=== PATIENT | male | born 1985 | race Caucasian/White ===

== ENCOUNTER 2016-12-01 11:44 | Emergency (ER) | payer BC ==
[2016-12-01 11:55] VITALS: BP 146/92
[2016-12-01] MEDS ORDERED: Sodium Chloride 0.9% 10 ML Syringe FLUSH PRN (12:31)
[2016-12-01] MEDS ORDERED: HYDROmorphone 1 MG/ML Syringe IVPUSH ONE ×2 (12:31→13:37)
--- NOTE | 2016-12-01 13:00 | EDM.PDOC ---
ED HPI GENERAL MEDICAL PROBLEM - General Chief Complaint: Back Pain or Injury Stated Complaint: BACK PAIN Time Seen by Provider: 12/01/16 12:00 Source of Information: Reports: Patient History Limitations: Reports: No Limitations - History of Present Illness INITIAL COMMENTS - FREE TEXT/NARRATIVE: The patient presents with low back pain. He has a history of 2 bulging disks on the right. He has been on steroids for it and on light duty. He is back at work and active and for the past 3 days he has gotten worse pain. He has tingling down his right leg. He has no numbness or weakness. He has no bowel or bladder problems. He went to the walk in clinic and they gave him a shot of toradol and solumedrol. That did not help so they sent him over here. Onset: Gradual Duration: Day(s): (3) Location: Reports: Back Quality: Reports: Sharp Severity: Severe Improves with: Reports: None Worsens with: Reports: Movement Context: Reports: Activity Associated Symptoms: Reports: No Other Symptoms Right Lower Back Pain Score (Numeric/FACES): 10 - Related Data Allergies Allergy/AdvReac Type Severity Reaction Status Date / Time No Known Allergies Allergy Verified 12/01/16 11:55 Home Meds: Home Meds Cyclobenzaprine [Flexeril] 10 mg PO TID PRN #20 tablet 12/01/16 [Rx] oxyCODONE HCl/Acetaminophen [Percocet 5-325 mg Tablet] 1 - 2 each PO Q6HR PRN # 20 tablet 12/01/16 [Rx] Past Medical History Musculoskeletal History: Reports: Back Pain, Chronic - Past Surgical History Musculoskeletal Surgical History: Reports: None Social & Family History - Tobacco Use Smoking Status *Q: Current Every Day Smoker Years of Tobacco use: 3 Packs/Tins Daily: 1 Used Tobacco, but Quit: No Second Hand Smoke Exposure: No - Caffeine Use Caffeine Use: Reports: Coffee, Soda - Recreational Drug Use Drug Use in Last 12 Months: Yes Recreational Drug Type: Reports: Marijuana/Hashish Other Recreational Drug Type: one week ago last use ED ROS GENERAL - Review of Systems Review Of Systems: See Below Constitutional: Reports: No Symptoms HEENT: Reports: No Symptoms Respiratory: Reports: No Symptoms Cardiovascular: Reports: No Symptoms Endocrine: Reports: No Symptoms GI/Abdominal: Reports: No Symptoms : Reports: No Symptoms Musculoskeletal: Reports: Back Pain ED EXAM,LOWER BACK PAIN/INJURY - Physical Exam Exam: See Below Exam Limited By: No Limitations General Appearance: Alert, No Apparent Distress Ears: Normal External Exam Nose: Normal Inspection Head: Atraumatic, Normocephalic Neck: Normal Inspection Respiratory/Chest: No Respiratory Distress, Lungs Clear, Normal Breath Sounds Cardiovascular: Regular Rate, Rhythm, No Edema, No Murmur GI/Abdominal: Soft, Non-Tender, No Organomegaly, No Mass Back Exam: Other (Mild pain upon palpation to the right lower back. Mild weakness to the right leg. Good sensation. Pain to his leg and low back when moving his leg.) Neurological: Alert, Oriented x 3 Course - Vital Signs Last Recorded V/S: Last Vital Signs Temp 98 F 12/01/16 11:52 Pulse 64 12/01/16 11:52 Resp 22 H 12/01/16 11:52 BP 146/92 H 12/01/16 11:52 Pulse Ox 96 12/01/16 11:52 - Orders/Labs/Meds Orders: Active Orders 24 hr Category Date Time Status Peripheral IV Care [RC] . DIRECTED Care 12/01/16 12:31 Active Sodium Chloride 0.9% [Saline Flush] Med 12/01/16 12:31 Active 10 ml FLUSH ASDIRECTED PRN Peripheral IV Insertion Adult [OM.PC] Routine Oth 12/01/16 12:31 Ordered Medication Orders Sodium Chloride (Saline Flush) 10 ml FLUSH ASDIRECTED PRN PRN Reason: Keep Vein Open Last Admin: 12/01/16 12:44 Dose: 10 ml Meds: Medications Generic Name Dose Route Start Last Admin Trade Name Freq PRN Reason Stop Dose Admin Sodium Chloride 10 ml 12/01/16 12:31 12/01/16 12:44 Saline Flush FLUSH 10 ml ASDIRECTED PRN Administration Keep Vein Open Discontinued Medications Generic Name Dose Route Start Last Admin Trade Name Freq PRN Reason Stop Dose Admin Diazepam 5 mg 12/01/16 12:31 12/01/16 12:44 Valium IVPUSH 12/01/16 12:32 5 mg ONETIME ONE Administration Hydromorphone HCl 1 mg 12/01/16 12:31 12/01/16 12:44 Dilaudid IVPUSH 12/01/16 12:32 1 mg ONETIME ONE Administration Hydromorphone HCl 1 mg 12/01/16 13:37 12/01/16 13:42 Dilaudid IVPUSH 12/01/16 13:38 1 mg ONETIME ONE Administration - Re-Assessments/Exams Free Text/Narrative Re-Assessment/Exam: 12/01/16 13:03 I ordered an IV saline lock, valium 5mg IV, and dilaudid 1mg. 12/01/16 14:10 He still had pain so I ordered dilaudid. He feels better now. I will give him a prescription for percocet and flexeril. Departure - Departure Time of Disposition: 14:10 Disposition: Home, Self-Care 01 Condition: Good Clinical Impression: Bulging lumbar disc Low back pain Qualifiers: Chronicity: acute Back pain laterality: right Sciatica presence: with sciatica Sciatica laterality: sciatica of right side Qualified Code(s): M54.41 - Lumbago with sciatica, right side - Discharge Information Prescriptions: oxyCODONE HCl/Acetaminophen [Percocet 5-325 mg Tablet] 1 - 2 each PO Q6HR PRN # 20 tablet PRN Reason: Pain Cyclobenzaprine [Flexeril] 10 mg PO TID PRN #20 tablet PRN Reason: Pain Referrals: Fidencio Moran MD [Primary Care Provider] - Forms: ED Department Discharge Additional Instructions: Take the flexeril and percocet for pain. Try ice or heat which ever one feels better. Follow up with your doctor. Please return if you are worse such as more pain, numbness in your groin or leg, weakness to your leg, if you are unable to urinate or incontinent of stool. - My Orders Last 24 Hours: My Active Orders 12/01/16 12:31 Peripheral IV Care [RC] . DIRECTED Sodium Chloride 0.9% [Saline Flush] 10 ml FLUSH ASDIRECTED PRN Peripheral IV Insertion Adult [OM.PC] Routine - Assessment/Plan Last 24 Hours: My Active Orders 12/01/16 12:31 Peripheral IV Care [RC] . DIRECTED Sodium Chloride 0.9% [Saline Flush] 10 ml FLUSH ASDIRECTED PRN Peripheral IV Insertion Adult [OM.PC] Routine
== END 2016-12-01 14:38 | disposition home or self-care (01) ==
LOC: JD.ED 11:44
DX: M51.26 Other intervertebral disc displacement, lumbar region (principal); F17.210 Nicotine dependence, cigarettes, uncomplicated
CPT/HCPCS: 96374; 96375; 96376; 99283; J1170; J3360; J7050; 99284

== ENCOUNTER 2020-09-20 18:52 | Emergency (ER) | payer BC ==
[2020-09-20 18:58] VITALS: BP 158/103; PULSE 112
[2020-09-20] MEDS ORDERED: Sodium Chloride 0.9% 10 ML Syringe FLUSH PRN (19:37)
--- NOTE | 2020-09-20 19:42 | EDM.PDOC ---
ED HPI GENERAL MEDICAL PROBLEM - General Chief Complaint: General Stated Complaint: [facility] Time Seen by Provider: 09/20/20 19:16 Source of Information: Reports: Patient, Family (Parents) History Limitations: Reports: No Limitations - History of Present Illness INITIAL COMMENTS - FREE TEXT/NARRATIVE: Mr. Salmeron is a very pleasant 35-year-old gentleman who is now brought to the ED by EMS after suffering a syncopal episode shortly after getting out of a hot shower around 17:30 this evening. He was found by his parents, with whom he lives and who are present in the ED, who denies that they saw any seizure-like activity. The patient reports that he initially did not recall that he had just had a shower, but that he recalled that once he was in the ambulance. He states that he initially had a bad headache when he woke up from the event, but that now the headache is minimal. He believes that he struck his upper right shoulder/trapezius area when he fell, as he has some discomfort in that area. He denies having pain elsewhere. The patient reports that he is overly tired, having slept only 2 hours last night prior to working a 10-hour shift today. The patient denies experiencing any recent chest pain or palpitations. No prior syncopal episodes. No medications were given to the patient prior to EMS arrival, and EMS did not give any medications. Here in the ED, the patient's initial BP is found to be mildly elevated at 158/103, with tachycardia 112 bpm. The patient is afebrile, saturating 98% on room air. He appears to be quite comfortable, in no distress whatsoever. Prior to this evening, the patient denies having a recent fever, chills, sore throat, ear pain, nasal or sinus congestion, cough, dyspnea, chest pain, palpitations, nausea, vomiting, constipation, diarrhea, abdominal pain, urinary symptoms, recent weight gain or weight loss, recent bloody bowel movements or black bowel movements, recent joint aches, headaches, or rashes. The patient's PCP was Dr. Manuel Espino; the patient did not know that Dr. Espino retired. Neck Pain Score (Numeric/FACES): 1 - Related Data Allergies Allergy/AdvReac Type Severity Reaction Status Date / Time No Known Allergies Allergy Verified 09/20/20 18:58 Home Meds: Home Meds . [No Known Home Meds] 09/20/20 [History] Past Medical History Dermatologic History: Reports: Psoriasis (untreated) - Past Surgical History HEENT Surgical History: Reports: Oral Surgery (dental extractions) Social & Family History - Tobacco Use Tobacco Use Within Last Twelve Months: Smokeless Tobacco (chews 3/4 can per day) - Caffeine Use Caffeine Use: Reports: Energy Drinks - Alcohol Use Alcohol Use History: Yes Alcohol Use Frequency: Daily - Recreational Drug Use Recreational Drug Use: Yes Drug Use in Last 12 Months: No Recreational Drug Type: Reports: Marijuana/Hashish (last smoked 2019) - Living Situation & Occupation Living situation: Reports: Single, with Family (Parents) 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 Musculoskeletal: Reports: Back Pain (chronic) ED EXAM, GENERAL - Physical Exam Exam: See Below Exam Limited By: No Limitations General Appearance: Alert, WD/WN, No Apparent Distress Eye Exam: Bilateral Eye: EOMI, Normal Inspection Ears: Normal External Exam, Normal Canal, Hearing Grossly Normal, Normal TMs Nose: Normal Inspection, Normal Mucosa, No Blood Throat/Mouth: Normal Inspection, Normal Lips, Normal Oropharynx, Normal Voice, No Airway Compromise, Other (Poor dentition) Head: Atraumatic, Normocephalic Neck: Normal Inspection, Supple, Full Range of Motion, Tender Lateral (mild, to upper right trapezius). No: Lymphadenopathy (L), Lymphadenopathy (R) Respiratory/Chest: No Respiratory Distress, Lungs Clear, Normal Breath Sounds, No Accessory Muscle Use Cardiovascular: Normal Peripheral Pulses, Regular Rate, Rhythm, No Edema, No Gallop, No JVD, No Murmur, No Rub Peripheral Pulses: 3+: Radial (L), Radial (R) GI/Abdominal: Normal Bowel Sounds, Soft, Non-Tender, No Organomegaly, No Distention, No Abnormal Bruit, No Mass Back Exam: Normal Inspection, Full Range of Motion, NT Extremities: Normal Range of Motion, No Pedal Edema, Normal Capillary Refill Neurological: Alert, Oriented, CN II-XII Intact, Normal Cognition, No Motor/Sensory Deficits Psychiatric: Normal Affect Skin Exam: Warm, Dry, Intact, Normal Color, Rash (Psoriatic plaques to bilateral anterior legs) #1 Interpretation EKG Date: 09/20/20 Time: 19:59 Rhythm: Other (Sinus tachycardia) Rate (Beats/Min): 101 [place]: Normal (Borderline LAD) P-Wave: Present QRS: Normal ST-T: Normal QT: Normal Comparison: NA - No Prior EKG Course - Vital Signs Last Recorded V/S: Last Vital Signs Temp 36.4 C 09/20/20 18:55 Pulse 112 H 09/20/20 18:55 Resp 16 09/20/20 18:55 BP 158/103 H 09/20/20 18:55 Pulse Ox 98 09/20/20 18:55 Orthostatic Blood Pressure [ 133/81 Standing] Orthostatic Blood Pressure [ 138/85 Sitting] Orthostatic Blood Pressure [ 137/82 Supine] - Orders/Labs/Meds Orders: Active Orders 24 hr Category Date Time Status EKG Documentation Completion [RC] STAT Care 09/20/20 19:36 Active Orthostatic Vital Signs [RC] STAT Care 09/20/20 19:24 Active Peripheral IV Care [RC] . DIRECTED Care 09/20/20 19:38 Active Ang Chest [CT] Stat Exams 09/20/20 21:00 Taken Cervical Spine wo Cont [CT] Stat Exams 09/20/20 21:55 Taken Sodium Chloride 0.9% [Normal Saline] 1,000 ml Med 09/20/20 21:00 Active IV ASDIRECTED Sodium Chloride 0.9% [Saline Flush] Med 09/20/20 19:37 Active 10 ml FLUSH ASDIRECTED PRN Peripheral IV Insertion Adult [OM.PC] Routine Oth 09/20/20 19:37 Ordered Medication Orders Sodium Chloride (Normal Saline) 1,000 mls @ 150 mls/hr IV ASDIRECTED GARCIA Last Admin: 09/20/20 21:35 Dose: 150 mls/hr Documented by: MICHAEL Sodium Chloride (Sodium Chloride 0.9% 10 Ml Syringe) 10 ml FLUSH ASDIRECTED PRN PRN Reason: Keep Vein Open Last Admin: 09/20/20 19:48 Dose: 10 ml Documented by: MICHAEL Labs: Laboratory Tests 09/20/20 09/20/20 09/20/20 Range/Units 20:00 20:00 20:00 WBC 9.11 H (4.23-9.07) K/mm3 RBC 4.20 L (4.63-6.08) M/mm3 Hgb 15.1 (13.7-17.5) gm/dl Hct 42.1 (40.1-51.0) % MCV 100.2 H (79.0-92.2) fl MCH 36.0 H (25.7-32.2) pg MCHC 35.9 H (32.2-35.5) g/dl RDW Std Deviation 49.1 H (35.1-43.9) fL Plt Count 192 (163-337) K/mm3 MPV 8.8 L (9.4-12.3) fl Neutrophils % (Manual) 83 H (40-60) % Band Neutrophils % 2 (0-10) % Lymphocytes % (Manual) 13 L (20-40) % Atypical Lymphs % 0 % Monocytes % (Manual) 2 (2-10) % Eosinophils % (Manual) 0 L (0.8-7.0) % Basophils % (Manual) 0 L (0.2-1.2) Platelet Estimate Adequate Anisocytosis 1+ slight Macrocytosis 1+ slight RBC Morph Comment Not Reportable D-Dimer, Quantitative 0.97 H (0.19-0.50) mg/L Sodium 136 (136-145) mEq/L Potassium 3.7 (3.5-5.1) mEq/L Chloride 98 (98-107) mEq/L Carbon Dioxide 23 (21-32) mEq/L Anion Gap 18.7 H (5-15) BUN 15 (7-18) mg/dL Creatinine 1.1 (0.7-1.3) mg/dL Est Cr Clr Drug Dosing 95.86 mL/min Estimated GFR (MDRD) > 60 (>60) mL/min BUN/Creatinine Ratio 13.6 L (14-18) Glucose 117 H (74-106) mg/dL Calcium 8.6 (8.5-10.1) mg/dL Magnesium 2.0 (1.8-2.4) mg/dl Total Bilirubin 1.4 H (0.2-1.0) mg/dL AST 113 H (15-37) U/L ALT 92 H (16-63) U/L Alkaline Phosphatase 62 (46-116) U/L Troponin I < 0.017 (0.00-0.056) ng/mL Total Protein 7.6 (6.4-8.2) g/dl Albumin 4.3 (3.4-5.0) g/dl Globulin 3.3 gm/dL Albumin/Globulin Ratio 1.3 (1-2) Urine Opiates Screen (QUUIPR=183) Ur Buprenorphine Scrn (CUTOFF=10) Ur Oxycodone Screen (CYO5HD=108) Urine Methadone Screen (GZW1RL=946) Ur Propoxyphene Screen (UNLRUH=017) Ur Barbiturates Screen (CGEDRK=571) Ur Tricyclics Screen (YDSMNJ=459) Ur Phencyclidine Scrn (CUTOFF=25) Ur Amphetamine Screen (XCNOHK=963) U Methamphetamines Scrn (NFYYUF=072) U Benzodiazepines Scrn (PMZHJF=192) U Cocaine Metab Screen (XATCBM=998) U Marijuana (THC) Screen (CUTOFF=50) Ethyl Alcohol (0.00) gm% 09/20/20 09/20/20 Range/Units 20:00 20:20 WBC (4.23-9.07) K/mm3 RBC (4.63-6.08) M/mm3 Hgb (13.7-17.5) gm/dl Hct (40.1-51.0) % MCV (79.0-92.2) fl MCH (25.7-32.2) pg MCHC (32.2-35.5) g/dl RDW Std Deviation (35.1-43.9) fL Plt Count (163-337) K/mm3 MPV (9.4-12.3) fl Neutrophils % (Manual) (40-60) % Band Neutrophils % (0-10) % Lymphocytes % (Manual) (20-40) % Atypical Lymphs % % Monocytes % (Manual) (2-10) % Eosinophils % (Manual) (0.8-7.0) % Basophils % (Manual) (0.2-1.2) Platelet Estimate Anisocytosis Macrocytosis RBC Morph Comment D-Dimer, Quantitative (0.19-0.50) mg/L Sodium (136-145) mEq/L Potassium (3.5-5.1) mEq/L Chloride (98-107) mEq/L Carbon Dioxide (21-32) mEq/L Anion Gap (5-15) BUN (7-18) mg/dL Creatinine (0.7-1.3) mg/dL Est Cr Clr Drug Dosing mL/min Estimated GFR (MDRD) (>60) mL/min BUN/Creatinine Ratio (14-18) Glucose (74-106) mg/dL Calcium (8.5-10.1) mg/dL Magnesium (1.8-2.4) mg/dl Total Bilirubin (0.2-1.0) mg/dL AST (15-37) U/L ALT (16-63) U/L Alkaline Phosphatase (46-116) U/L Troponin I (0.00-0.056) ng/mL Total Protein (6.4-8.2) g/dl Albumin (3.4-5.0) g/dl Globulin gm/dL Albumin/Globulin Ratio (1-2) Urine Opiates Screen Negative (UXGCXA=732) Ur Buprenorphine Scrn Negative (CUTOFF=10) Ur Oxycodone Screen Negative (MCP6UM=477) Urine Methadone Screen Negative (FEH4HM=384) Ur Propoxyphene Screen Negative (ABILDO=584) Ur Barbiturates Screen Negative (SDSNAI=290) Ur Tricyclics Screen Negative (NOAHQN=622) Ur Phencyclidine Scrn Negative (CUTOFF=25) Ur Amphetamine Screen Negative (XDJRTZ=452) U Methamphetamines Scrn Presumptive positive H (MIFPIH=703) U Benzodiazepines Scrn Negative (MCCXQQ=853) U Cocaine Metab Screen Negative (AZHXZU=312) U Marijuana (THC) Screen Negative (CUTOFF=50) Ethyl Alcohol 0.00 (0.00) gm% Meds: Medications Generic Name Dose Route Start Last Admin Trade Name Freq PRN Reason Stop Dose Admin Sodium Chloride 1,000 mls @ 150 mls/hr 09/20/20 21:00 09/20/20 21:35 Normal Saline IV 150 mls/hr ASDIRECTED GARCIA Administration Sodium Chloride 10 ml 09/20/20 19:37 09/20/20 19:48 Sodium Chloride 0.9% 10 Ml Syringe FLUSH 10 ml ASDIRECTED PRN Administration Keep Vein Open - Re-Assessments/Exams Free Text/Narrative Re-Assessment/Exam: 09/20/20 19:38 As above, the patient suffered a syncopal episode after he got out of the shower this evening. He likely struck the right side of his neck/upper right trapezius area. He is complaining of a mild headache, although states that it was worse when he originally woke. His neurologic examination is completely normal. Despite this, I ordered a CT of the head without contrast to make sure that there are no abnormalities that could have precipitated his syncopal episode, along with orthostatics, several blood tests, and an ECG. 09/20/20 20:01 The patient's mother pulled me aside and informed me that the patient drinks vodka on a daily or near daily basis. The patient had reported to me that he only drinks on occasion. The patient's mother is unaware of drug use, other than marijuana, although she states that the patient often spends weekends at [employer] houses, and she therefore does not know what he is doing when gone. Based on this information, I have updated the patient's SocHx and added an EtOH level and urine drug screen to the patient's work-up. 09/20/20 20:23 CT of the head without contrast is read by Dr. Bond as: 1. Nothing acute is appreciated on noncontrast head CT exam. 09/20/20 20:34 The patient is not orthostatic. 09/20/20 20:57 The patient's CBC is remarkable for slight leukocytosis of 9.11, but with only 2% bandemia, and the remainder of his CBC being unremarkable. His CMP is remarkable for slight hyperglycemia of 117, a TBil slightly elevated at 1.4, and an AST/ALT slightly elevated at 113/92, respectively, with the remainder of his CMP being unremarkable. His magnesium level is within normal limits at 2.0. His troponin is undetectably low. His D-dimer is mildly elevated at 0.97. His EtOH level is 0.00. His urine drug screen is positive for methamphetamine. Based on the above, I have ordered a CT angiogram of the chest to evaluate for a PE, along with some IV fluid. 09/20/20 21:56 Notified by the mapping technician Artemio that he just finished the CT angiogram of the chest, but that the patient is complaining of neck pain. When I evaluated the patient earlier, he was complaining of right upper trapezius pain, not neck pain, per se, however, if the patient is in fact complaining of neck pain at this time, I requested that a CT of the cervical spine be performed. I have placed the order. 09/20/20 22:45 CT angiogram of the chest is read by [facility] as: 1. No definite central or proximal segmental pulmonary embolus. The distal segmental and subsegmental pulmonary arteries are limited in evaluation due to suboptimal opacification. 2. Hepatic steatosis. The visualized portion of the spleen is enlarged. CT of the cervical spine without contrast is read by [facility] as: 1. No acute fracture cervical spine. 2. Cervical spondylosis as above. 09/20/20 22:52 Test results discussed with the patient. He allowed his parents to be present. As above, today's work-up, demonstrating elevated transaminases in an alcohol pattern, along with hepatic steatosis confirms that the patient drinks excessively. He acknowledges that he does so on occasion. He stated that he does not do methamphetamine himself, but that he has been around people who do. I'm not sure that that is true. I recommended that he follow-up with [facility]. He stated that he is familiar with them, having been there before. Departure - Departure Time of Disposition: 22:54 Disposition: Home, Self-Care 01 Condition: Good Clinical Impression: Syncope, Alcohol consumption binge drinking, Methamphetamine abuse, Hepatic steatosis - Discharge Information *PRESCRIPTION DRUG MONITORING PROGRAM REVIEWED*: Not Applicable *COPY OF PRESCRIPTION DRUG MONITORING REPORT IN PATIENT SHARAD: Not Applicable Referrals: PCP,None [Primary Care Provider] - Forms: ED Department Discharge Additional Instructions: You were seen in the emergency room after passing out after taking a shower tonight. Work-up in the ER included positional blood pressure checks, several blood tests, a urine drug screen, a CT scan of your head, neck, and a CT angiogram of your chest, and an ECG. Your work-up found that you have hepatic steatosis, also known as a fatty liver, that is most likely due to your excessive drinking. Hepatic steatosis was not the cause of your passing out. Your work-up also found methamphetamine in your system. The remainder of your work-up was grossly unremarkable, and does not explain the cause of your passing out. We recommend that you stay adequately hydrated and get plenty of rest tonight. You are to refrain from drinking alcohol. We recommend that you follow-up at [facility]: [address] [place] [phone] If any other problems, please do not hesitate to return to the ER. Sepsis Event Note (ED) - Evaluation Sepsis Screening Result: No Definite Risk - Focused Exam Vital Signs: Vital Signs Temp Pulse Resp BP Pulse Ox 09/20/20 18:55 36.4 C 112 H 16 158/103 H 98 - My Orders Last 24 Hours: My Active Orders 09/20/20 19:24 Orthostatic Vital Signs [RC] STAT 09/20/20 19:36 EKG Documentation Completion [RC] STAT 09/20/20 19:37 Sodium Chloride 0.9% [Saline Flush] 10 ml FLUSH ASDIRECTED PRN Peripheral IV Insertion Adult [OM.PC] Routine 09/20/20 19:38 Peripheral IV Care [RC] . DIRECTED 09/20/20 21:00 Ang Chest [CT] Stat Sodium Chloride 0.9% [Normal Saline] 1,000 ml IV ASDIRECTED 09/20/20 21:55 Cervical Spine wo Cont [CT] Stat - Assessment/Plan Last 24 Hours: My Active Orders 09/20/20 19:24 Orthostatic Vital Signs [RC] STAT 09/20/20 19:36 EKG Documentation Completion [RC] STAT 09/20/20 19:37 Sodium Chloride 0.9% [Saline Flush] 10 ml FLUSH ASDIRECTED PRN Peripheral IV Insertion Adult [OM.PC] Routine 09/20/20 19:38 Peripheral IV Care [RC] . DIRECTED 09/20/20 21:00 Ang Chest [CT] Stat Sodium Chloride 0.9% [Normal Saline] 1,000 ml IV ASDIRECTED 09/20/20 21:55 Cervical Spine wo Cont [CT] Stat
--- NOTE | 2020-09-20 20:14 | CT ---
Head CT Technique: Multiple axial sections through the brain were obtained. Reconstructed coronal and sagittal images were obtained. Comparison: No prior intracranial imaging is available. Findings: Ventricles along with basal cisterns and sulci over the convexities appear within normal limits for the patient's age. No abnormal parenchymal densities are seen. No evidence of intracranial hemorrhage. No midline shift or mass-effect is seen. Small calcification is seen along the cerebellar tentorium on the right side which I believe is incidental. Bone window settings were reviewed which show no acute osseous abnormality. Visualized mastoid sinuses and visualized paranasal sinuses show nothing acute. Impression: 1. Nothing acute is appreciated on noncontrast head CT exam. Diagnostic code #2
[2020-09-20] MEDS ORDERED: Sodium Chloride 0.9% 1,000 ML IV SCH (21:00)
--- NOTE | 2020-09-21 07:53 | CT ---
CT cervical spine Technique: Multiple axial sections were obtained from above C1 inferiorly to the bottom of T2. Reconstructed coronal and sagittal images were obtained. Comparison: No prior cervical spine imaging is available. Findings: Mild mucosal thickening is partially seen within the maxillary sinuses. Mild disc space narrowing is noted at C4-5. Moderate disc space narrowing noted at C5-6. C5-6 level also shows posterior osteophytes and anterior osteophytes. Vertebral body heights are maintained. Old ununited avulsion fracture is noted at the tip of the spinous process of T1. Moderate right-sided neural foraminal stenosis is noted at C5-6. Mild left-sided neural foraminal stenosis is noted at C5-6. Other neural foramina are patent. Visualized lung bases show nothing acute. No acute fracture is appreciated. No abnormal subluxation is appreciated. On the AP view, spurring is noted off the uncovertebral joints at C5-6 which is more prominent on the right side. Impression: 1. Degenerative change most prominent at C5-6 as noted above. Other findings believed to be incidental. 2. Nothing acute is seen on CT study of the cervical spine. Diagnostic code #2 I agree with preliminary report from [facility], finalized on 09/20/20, 11:32 PM CDT, code #1
--- NOTE | 2020-09-21 07:55 | CT ---
CT chest Technique: Multiple axial sections were obtained from above the lung apices inferiorly through the lung bases. Intravenous contrast was utilized. Study has been performed as a pulmonary angiogram protocol. Comparison: No prior chest imaging is available. Findings: Pulmonary arteries are not optimally opacified. No filling defects are seen within the main or proximal segmental branches to indicate larger pulmonary emboli. Smaller pulmonary emboli could be missed more distally. Aorta shows no aneurysm. Mediastinum and hilar regions show no adenopathy. No axillary adenopathy is seen. No pericardial thickening is appreciated. Spleen is not completely seen on this study and appears to be slightly enlarged. Liver shows probable fatty infiltration. Minimal gynecomastia is seen within both breasts. Lung window settings were reviewed. No acute parenchymal change is seen. No pleural effusions or pneumothorax is identified. Bone window settings were reviewed which show no acute osseous abnormality. Impression: 1. Less than optimal opacification of the pulmonary arteries. No findings of larger pulmonary embolism within the main or proximal segmental branches. Smaller more distal pulmonary emboli could be missed. 2. Liver shows mild fatty infiltration. Spleen is not completely seen but appears to be slightly enlarged. 3. Minimal gynecomastia. Diagnostic code #2 I agree with preliminary report from [facility], finalized on 09/19/20, 11:42 PM CDT, code #1
== END 2020-09-20 23:07 | disposition home or self-care (01) ==
LOC: JD.ED 18:52
DX: R55 Syncope and collapse (principal); F15.10 Other stimulant abuse, uncomplicated; K76.0 Fatty (change of) liver, not elsewhere classified; F17.220 Nicotine dependence, chewing tobacco, uncomplicated; Z72.89 Other problems related to lifestyle
CPT/HCPCS: 36415; 70450; 71275; 72125; 80053; 80306; 80307; 83735; 84484; 85007; 85027; 85379; 93005; 99285; J7030; 93010; 99284

== ENCOUNTER 2021-03-31 14:55 | Emergency (ER) | payer BC ==
[2021-03-31 15:21] VITALS: BP 144/107; PULSE 102
[2021-03-31] MEDS ORDERED: Metoclopramide 10 MG/2 ML SDV IVPUSH ONE (16:25)
[2021-03-31] MEDS ORDERED: Sodium Chloride 0.9% 10 ML Syringe FLUSH PRN (16:25)
[2021-03-31] MEDS ORDERED: Ketorolac 30 MG/ML SDV IVPUSH ONE (16:27)
[2021-03-31] MEDS ORDERED: diphenhydrAMINE 50 MG/ML SDV IVPUSH ONE (16:27)
[2021-03-31] MEDS ORDERED: Sodium Chloride 0.9% 1,000 ML IV SCH (16:30)
--- NOTE | 2021-03-31 17:47 | EDM.PDOCBH ---
ED HPI GENERAL MEDICAL PROBLEM - General Chief Complaint: Drug or Alcohol Abuse Stated Complaint: DETOX Time Seen by Provider: 03/31/21 16:06 Source of Information: Reports: Patient, Family History Limitations: Reports: Intoxication - History of Present Illness INITIAL COMMENTS - FREE TEXT/NARRATIVE: The patient presents for a headache and possible detox. He says he has been h aving headaches for months. He is not sure what is causing this. He also is intoxicated. He drinks daily and it is vodka. His mother says he got a couple DUI's in the past and he was wearing an ankle bracelet. [place] and he has been drinking heavily ever since. He has no numbness or weakness. He has no fever, chills, cough, chest pain or shortness of breath. He has no abdominal pain, nausea or vomiting. His mom is here and she says he needs to be committed. She has not done any of the paper work and did not talk to the workers compensation attorney. He does have nausea and vomiting at times. Onset: Gradual Duration: Day(s): Location: Reports: Head Quality: Reports: Sharp Severity: Severe Improves with: Reports: None Worsens with: Reports: None Associated Symptoms: Reports: Headaches, Nausea/Vomiting. Denies: Chest Pain, Cough, Fever/Chills, Shortness of Breath Headache Pain Score (Numeric/FACES): 10 - Related Data Allergies Allergy/AdvReac Type Severity Reaction Status Date / Time No Known Allergies Allergy Verified 09/20/20 18:58 Home Meds: Home Meds . [No Known Home Meds] 09/20/20 [History] Past Medical History Musculoskeletal History: Reports: Back Pain, Chronic Psychiatric History: Reports: Addiction, Anxiety, Depression Dermatologic History: Reports: Psoriasis - Infectious Disease History Infectious Disease History: Reports: None - Past Surgical History HEENT Surgical History: Reports: Oral Surgery Musculoskeletal Surgical History: Reports: None Social & Family History - Tobacco Use Tobacco Use Status *Q: Current Every Day Tobacco User Years of Tobacco use: 20 Packs/Tins Daily: 1 - Caffeine Use Caffeine Use: Reports: None - Alcohol Use Number of Drinks Per Day: 3 - Living Situation & Occupation Living situation: Reports: Single, with Family (Parents) 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[employer]) ED ROS GENERAL - Review of Systems Review Of Systems: See Below Constitutional: Reports: No Symptoms HEENT: Reports: No Symptoms Respiratory: Reports: No Symptoms Cardiovascular: Reports: No Symptoms Endocrine: Reports: No Symptoms GI/Abdominal: Reports: No Symptoms : Reports: No Symptoms Musculoskeletal: Reports: No Symptoms Skin: Reports: No Symptoms Neurological: Reports: Headache ED EXAM, BEHAVIORAL HEALTH - Physical Exam Exam: See Below Exam Limited By: Intoxication General Appearance: Alert, No Apparent Distress Ears: Normal External Exam Nose: Normal Inspection Head: Atraumatic, Normocephalic Neck: Normal Inspection Respiratory/Chest: No Respiratory Distress, Lungs Clear, Normal Breath Sounds Cardiovascular: Regular Rate, Rhythm, No Edema, No Murmur GI/Abdominal: Soft, Non-Tender, No Organomegaly, No Mass Back Exam: Normal Inspection Extremities: Normal Inspection COURSE, BEHAVIORAL HEALTH COMP - Course Vital Signs: Last Vital Signs Temp 98.7 F 03/31/21 15:20 Pulse 102 H 03/31/21 15:20 Resp 20 03/31/21 15:20 BP 144/107 H 03/31/21 15:20 Pulse Ox 96 03/31/21 15:20 Orders, Labs, Meds: Active Orders 24 hr Category Date Time Status Cardiac Monitoring [RC] . DIRECTED Care 03/31/21 16:25 Active Peripheral IV Care [RC] . DIRECTED Care 03/31/21 16:26 Active Sodium Chloride 0.9% [Normal Saline] 1,000 ml Med 03/31/21 16:30 Active IV .BOLUS Sodium Chloride 0.9% [Saline Flush] Med 03/31/21 16:25 Active 10 ml FLUSH ASDIRECTED PRN ED Antiemetic Medication Reflex [OM.PC] Stat Oth 03/31/21 16:26 Ordered Peripheral IV Insertion Adult [OM.PC] Stat Oth 03/31/21 16:25 Ordered Medication Orders Sodium Chloride (Normal Saline) 1,000 mls @ 1,000 mls/hr IV .BOLUS GARCIA Last Admin: 03/31/21 17:12 Dose: 1,000 mls/hr Documented by: BRADLEY Sodium Chloride (Sodium Chloride 0.9% 10 Ml Syringe) 10 ml FLUSH ASDIRECTED PRN PRN Reason: Keep Vein Open Last Admin: 03/31/21 17:12 Dose: 10 ml Documented by: BRADLEY Laboratory Tests 03/31/21 03/31/21 03/31/21 Range/Units 17:11 17:11 17:11 WBC 4.30 (4.23-9.07) K/mm3 RBC 4.81 (4.63-6.08) M/mm3 Hgb 17.6 H D (13.7-17.5) gm/dl Hct 48.9 (40.1-51.0) % MCV 101.7 H (79.0-92.2) fl MCH 36.6 H (25.7-32.2) pg MCHC 36.0 H (32.2-35.5) g/dl RDW Std Deviation 55.2 H (35.1-43.9) fL Plt Count 235 (163-337) K/mm3 MPV 8.1 L (9.4-12.3) fl Neut % (Auto) 43.7 (34.0-67.9) % Lymph % (Auto) 43.5 (21.8-53.1) % Swisher % (Auto) 10.5 (5.3-12.2) % Eos % (Auto) 0.9 (0.8-7.0) Baso % (Auto) 0.7 (0.1-1.2) % Neut # (Auto) 1.88 (1.78-5.38) K/mm3 Lymph # (Auto) 1.87 (1.32-3.57) K/mm3 Swisher # (Auto) 0.45 (0.30-0.82) K/mm3 Eos # (Auto) 0.04 (0.04-0.54) K/mm3 Baso # (Auto) 0.03 (0.01-0.08) K/mm3 Sodium 145 (136-145) mEq/L Potassium 3.7 (3.5-5.1) mEq/L Chloride 101 (98-107) mEq/L Carbon Dioxide 29 (21-32) mEq/L Anion Gap 18.7 H (5-15) BUN 10 (7-18) mg/dL Creatinine 1.0 (0.7-1.3) mg/dL Est Cr Clr Drug Dosing 104.43 mL/min Estimated GFR (MDRD) > 60 (>60) mL/min BUN/Creatinine Ratio 10.0 L (14-18) Glucose 124 H (70-99) mg/dL Calcium 9.0 (8.5-10.1) mg/dL Magnesium 2.0 (1.8-2.4) mg/dL Total Bilirubin 2.2 H (0.2-1.0) mg/dL AST 312 H (15-37) U/L ALT 131 H (16-63) U/L Alkaline Phosphatase 89 (46-116) U/L Total Protein 8.0 (6.4-8.2) g/dl Albumin 4.6 (3.4-5.0) g/dl Globulin 3.4 gm/dL Albumin/Globulin Ratio 1.4 (1-2) TSH 3rd Generation 1.321 (0.358-3.74) uIU/mL Salicylates (2.8-20) mg/dL Urine Opiates Screen Negative (GHDMHZ=407) Ur Buprenorphine Scrn Negative (CUTOFF=10) Ur Oxycodone Screen Negative (RYV1TO=408) Urine Methadone Screen Negative (ZRI4HM=419) Ur Propoxyphene Screen Negative (ERYYJB=786) Acetaminophen 0 L (10-30) ug/mL Ur Barbiturates Screen Negative (ZQNATZ=115) Ur Tricyclics Screen Negative (HURDDO=311) Ur Phencyclidine Scrn Negative (CUTOFF=25) Ur Amphetamine Screen Negative (RTRXYE=882) U Methamphetamines Scrn Negative (BVNRJR=754) U Benzodiazepines Scrn Negative (GFODOK=410) U Cocaine Metab Screen Negative (PPWUET=295) U Marijuana (THC) Screen Negative (CUTOFF=50) Ethyl Alcohol 0.45 (0.00) gm% SARS-CoV-2 RNA (JORGE) (NEGATIVE) 03/31/21 03/31/21 Range/Units 17:11 18:00 WBC (4.23-9.07) K/mm3 RBC (4.63-6.08) M/mm3 Hgb (13.7-17.5) gm/dl Hct (40.1-51.0) % MCV (79.0-92.2) fl MCH (25.7-32.2) pg MCHC (32.2-35.5) g/dl RDW Std Deviation (35.1-43.9) fL Plt Count (163-337) K/mm3 MPV (9.4-12.3) fl Neut % (Auto) (34.0-67.9) % Lymph % (Auto) (21.8-53.1) % Swisher % (Auto) (5.3-12.2) % Eos % (Auto) (0.8-7.0) Baso % (Auto) (0.1-1.2) % Neut # (Auto) (1.78-5.38) K/mm3 Lymph # (Auto) (1.32-3.57) K/mm3 Swisher # (Auto) (0.30-0.82) K/mm3 Eos # (Auto) (0.04-0.54) K/mm3 Baso # (Auto) (0.01-0.08) K/mm3 Sodium (136-145) mEq/L Potassium (3.5-5.1) mEq/L Chloride (98-107) mEq/L Carbon Dioxide (21-32) mEq/L Anion Gap (5-15) BUN (7-18) mg/dL Creatinine (0.7-1.3) mg/dL Est Cr Clr Drug Dosing mL/min Estimated GFR (MDRD) (>60) mL/min BUN/Creatinine Ratio (14-18) Glucose (70-99) mg/dL Calcium (8.5-10.1) mg/dL Magnesium (1.8-2.4) mg/dL Total Bilirubin (0.2-1.0) mg/dL AST (15-37) U/L ALT (16-63) U/L Alkaline Phosphatase (46-116) U/L Total Protein (6.4-8.2) g/dl Albumin (3.4-5.0) g/dl Globulin gm/dL Albumin/Globulin Ratio (1-2) TSH 3rd Generation (0.358-3.74) uIU/mL Salicylates < 0.2 L (2.8-20) mg/dL Urine Opiates Screen (ZKBNPE=869) Ur Buprenorphine Scrn (CUTOFF=10) Ur Oxycodone Screen (LSG4AM=718) Urine Methadone Screen (XPN6MU=527) Ur Propoxyphene Screen (LZPYAQ=284) Acetaminophen (10-30) ug/mL Ur Barbiturates Screen (KHPXJE=541) Ur Tricyclics Screen (KVIXXK=521) Ur Phencyclidine Scrn (CUTOFF=25) Ur Amphetamine Screen (ZNKSJX=053) U Methamphetamines Scrn (BQLSFG=080) U Benzodiazepines Scrn (CFUNVQ=123) U Cocaine Metab Screen (QMZSGY=603) U Marijuana (THC) Screen (CUTOFF=50) Ethyl Alcohol (0.00) gm% SARS-CoV-2 RNA (JORGE) Negative (NEGATIVE) Medications Generic Name Dose Route Start Last Admin Trade Name Freq PRN Reason Stop Dose Admin Sodium Chloride 1,000 mls @ 1,000 mls/hr 03/31/21 16:30 03/31/21 17:12 Normal Saline IV 1,000 mls/hr .BOLUS GARCIA Administration Sodium Chloride 10 ml 03/31/21 16:25 03/31/21 17:12 Sodium Chloride 0.9% 10 Ml Syringe FLUSH 10 ml ASDIRECTED PRN Administration Keep Vein Open Discontinued Medications Generic Name Dose Route Start Last Admin Trade Name Freq PRN Reason Stop Dose Admin Diphenhydramine HCl 50 mg 03/31/21 16:27 03/31/21 17:12 Diphenhydramine 50 Mg/Ml Sdv IVPUSH 03/31/21 16:28 50 mg ONETIME ONE Administration Ketorolac Tromethamine 30 mg 03/31/21 16:27 03/31/21 17:12 Ketorolac 30 Mg/Ml Sdv IVPUSH 03/31/21 16:28 30 mg ONETIME ONE Administration Metoclopramide HCl 10 mg 03/31/21 16:25 03/31/21 17:12 Metoclopramide 10 Mg/2 Ml Sdv IVPUSH 03/31/21 16:26 10 mg ONETIME ONE Administration Re-Assessment/Re-Exam: I ordered an IV NS 1L bolus, reglan 10mg IV, toradol 30mg IV, benadryl 50mg IV, labs, and CT of the head. The CT of his head shows nothing acute. His Hgb was elevated at 17.6. His anion gap is elevated at 18.7. His glucose is elevated at 124. His total bili is 2.2. His AST is elevated at 312 and ALT was elevated at 131. His TSH is elevated at 1.321. His UDS is negative. His salicylates and acetaminophen are negative. His ETOH is very high at 0.45. I talked to the patient and he can carry a conversation at 0.45. I explained to him that he has a problem with this high of a blood alcohol and he is walking and talking. He is addicted to alcohol. His liver enzymes are elevated and he is hurting his liver and could possibly go into liver failure if he continues down this road. Mom wanted him committed but at this time there are no beds. His blood alcohol is to high to go to the [facility]. He wants to leave. I will discharge him home. Departure - Departure Time of Disposition: 19:20 Disposition: Home, Self-Care 01 Condition: Good Clinical Impression: Alcohol intoxication Qualifiers: Complication of substance-induced condition: uncomplicated Qualified Code(s): F10.920 - Alcohol use, unspecified with intoxication, uncomplicated Alcohol addiction Qualifiers: Substance use status: uncomplicated Qualified Code(s): F10.20 - Alcohol dependence, uncomplicated Headache Qualifiers: Headache type: unspecified Headache chronicity pattern: acute headache Intractability: intractable Qualified Code(s): R51.9 - Headache, unspecified - Discharge Information *PRESCRIPTION DRUG MONITORING PROGRAM REVIEWED*: Not Applicable *COPY OF PRESCRIPTION DRUG MONITORING REPORT IN PATIENT SHARAD: Not Applicable Referrals: PCP,None [Primary Care Provider] - Forms: ED Department Discharge Additional Instructions: Contact [facility] in the morning. Their number is [phone]. Please return if you are worse. Sepsis Event Note (ED) - Focused Exam Vital Signs: Vital Signs Temp Pulse Resp BP Pulse Ox 03/31/21 15:20 98.7 F 102 H 20 144/107 H 96 - My Orders Last 24 Hours: My Active Orders 03/31/21 16:25 Cardiac Monitoring [RC] . DIRECTED Sodium Chloride 0.9% [Saline Flush] 10 ml FLUSH ASDIRECTED PRN Peripheral IV Insertion Adult [OM.PC] Stat 03/31/21 16:26 Peripheral IV Care [RC] . DIRECTED ED Antiemetic Medication Reflex [OM.PC] Stat 03/31/21 16:30 Sodium Chloride 0.9% [Normal Saline] 1,000 ml IV .BOLUS - Assessment/Plan Last 24 Hours: My Active Orders 03/31/21 16:25 Cardiac Monitoring [RC] . DIRECTED Sodium Chloride 0.9% [Saline Flush] 10 ml FLUSH ASDIRECTED PRN Peripheral IV Insertion Adult [OM.PC] Stat 03/31/21 16:26 Peripheral IV Care [RC] . DIRECTED ED Antiemetic Medication Reflex [OM.PC] Stat 03/31/21 16:30 Sodium Chloride 0.9% [Normal Saline] 1,000 ml IV .BOLUS
--- NOTE | 2021-03-31 17:54 | CT ---
Head CT Technique: Multiple axial sections through the brain were obtained. Intravenous contrast was not utilized. Reconstructed coronal and sagittal images were obtained. Comparison: Prior head CT study of 09/20/20. Findings: Ventricles along with basal cisterns and sulci over convexities are within normal limits for the patient's age. No abnormal parenchymal densities are seen. No evidence of intracranial hemorrhage is seen. No midline shift or mass-effect is seen. Bone window settings were reviewed which show no discrete abnormality within the visualized mastoid or paranasal sinuses. No acute calvarial abnormality is appreciated. Impression: 1. Nothing acute is seen on noncontrast head CT study. Diagnostic code #1
[2021-03-31 18:33] LABS: ACETAMINOPHEN 0 ug/mL (10-30)
== END 2021-03-31 19:10 | disposition home or self-care (01) ==
LOC: JD.ED 14:55
DX: R51.9 Headache, unspecified (principal); F10.229 Alcohol dependence with intoxication, unspecified; Z72.0 Tobacco use; Z20.822 Contact with and (suspected) exposure to COVID-19; Y90.5 Blood alcohol level of 100-119 mg/100 ml
CPT/HCPCS: 36415; 70450; 80053; 80143; 80179; 80306; 80307; 83735; 84443; 85025; 87635; 96374; 96375; 99284; J1200; J1885; J2765; J7030; U0002

== ENCOUNTER 2021-04-07 18:13 | Emergency (ER) | payer BC ==
[2021-04-07 18:38] VITALS: BP 147/116; PULSE 97
[2021-04-07] MEDS ORDERED: Sodium Chloride 0.9% 10 ML Syringe FLUSH PRN (18:51)
[2021-04-07] MEDS ORDERED: Sodium Chloride 0.9% 1,000 ML IV ONE (18:51)
--- NOTE | 2021-04-07 19:39 | EDM.PDOCBH ---
<Red Cazares A - Last Filed: 04/08/21 01:18> ED HPI GENERAL MEDICAL PROBLEM - General Chief Complaint: Drug or Alcohol Abuse Stated Complaint: [facility] Time Seen by Provider: 04/07/21 18:18 - Related Data Allergies Allergy/AdvReac Type Severity Reaction Status Date / Time No Known Allergies Allergy Verified 09/20/20 18:58 Home Meds: Home Meds . [No Known Home Meds] 09/20/20 [History] COURSE, BEHAVIORAL HEALTH COMP - Course Re-Assessment/Re-Exam: His drug screen is negative. His mom wants him to be committed but at this time I do not have enough to commit him. I called [facility] and they were able to come see him. He did not want to go to [facility]. She did give him inform ation and encouraged him to come in tomorrow morning. Departure - Departure Time of Disposition: 01:25 Disposition: Home, Self-Care 01 Condition: Good Clinical Impression: Alcohol abuse - Discharge Information *PRESCRIPTION DRUG MONITORING PROGRAM REVIEWED*: Not Applicable *COPY OF PRESCRIPTION DRUG MONITORING REPORT IN PATIENT SHARAD: Not Applicable Instructions: Alcohol Use Disorder Referrals: PCP,None [Primary Care Provider] - Forms: ED Department Discharge Additional Instructions: Follow up with Gladys tomorrow. Drink plenty of fluids like water and gatorade or powerade. Do not drink any alcohol. Please return if you are worse. <Amie Ku M - Last Filed: 04/11/21 10:19> ED HPI GENERAL MEDICAL PROBLEM - General Source of Information: Reports: Family History Limitations: Reports: Intoxication - History of Present Illness INITIAL COMMENTS - FREE TEXT/NARRATIVE: 36-year-old male presents the ER via [facility]. Patient is extremely intoxicated once he arrived here in the emergency department and will only open his eyes to verbal command and is not communicating at this time. The patient's mother and his aunt are at the bedside. Per their report they tell me that the patient was here in the emergency department 6 days ago and intoxicated. At that time family wanted him to be committed for his alcoholism however he was not agreeable to this and tore out his IV and left of the department. Per the patient's mother he [place] and was able to detox for the past several days. Did complain of chills sweating and nausea however did fairly well with the detox and did not have any seizure activity. However did have inability to sleep so 2 nights ago he elected to go to his home to try to get a good night sleep. The patient's mother did not hear from him at all yesterday and suspected he may be drinking again so she went to his house this evening to check on him and found him severely intoxicated in his bed. She then elected to call the ambulance. She states that he drinks approximately 1/5 of vodka daily for the past 20 years. He has never been to a treatment center. I asked her if she started any paperwork for committal or notified the states sales superintendent and she has not. The patient mom states that there is an opening at a treatment facility in [facility] and they are willing to take him once he has detoxed. She states that the patient occasionally has smoked marijuana in the past however she does not believe he does any other kind of street drugs. And he does use chewing tobacco. Treatments SENIOR CONTROLS TECHNICIAN: Reports: Other (see below) Other Treatments SENIOR CONTROLS TECHNICIAN: 500 ml of normal saline by ambulance Past Medical History Musculoskeletal History: Reports: Back Pain, Chronic Psychiatric History: Reports: Addiction, Anxiety, Depression Dermatologic History: Reports: Psoriasis - Infectious Disease History Infectious Disease History: Reports: None - Past Surgical History HEENT Surgical History: Reports: Oral Surgery Musculoskeletal Surgical History: Reports: None Social & Family History - Tobacco Use Tobacco Use Status *Q: Unknown Ever Used Tobacco - Caffeine Use Caffeine Use: Reports: None - Recreational Drug Use Recreational Drug Use: Yes - Living Situation & Occupation Living situation: Reports: Single, with Family (Parents) 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[email or web address]) ED ROS GENERAL - Review of Systems Review Of Systems: Unable To Obtain Reason Not Obtained: Due to intoxication ED EXAM, BEHAVIORAL HEALTH - Physical Exam Exam: See Below Exam Limited By: No Limitations General Appearance: No Apparent Distress, Lethargic (Opens his eyes to verbal command however not answering questions) Eye Exam: Bilateral Eye: PERRL Ears: Normal External Exam, Hearing Grossly Normal Nose: Normal Inspection Throat/Mouth: Normal Inspection, Normal Lips, Normal Voice, No Airway Compromise Head: Atraumatic, Normocephalic Neck: Normal Inspection, Supple Respiratory/Chest: No Respiratory Distress, Lungs Clear, Normal Breath Sounds, No Accessory Muscle Use, Chest Non-Tender Cardiovascular: Normal Peripheral Pulses, Regular Rate, Rhythm, No Edema, No Murmur GI/Abdominal: Normal Bowel Sounds, Soft, Non-Tender, No Distention (Male) Exam: Deferred Rectal (Males) Exam: Deferred Back Exam: Normal Inspection, Full Range of Motion Extremities: Normal Inspection Neurological: Other (Patient is heavily intoxicated only opens eyes to verbal command; not able to carry on a conversation) Psychiatric: Other (Patient is heavily intoxicated only opens eyes to verbal command; not able to carry on a conversation) Skin Exam: Warm, Dry, Intact, Normal color, Other (Psoriasis noted to abdomen an d hands) COURSE, BEHAVIORAL HEALTH COMP - Course Vital Signs: Last Vital Signs Temp 97.0 F 04/07/21 18:37 Pulse 97 04/07/21 18:37 Resp 20 04/07/21 18:37 BP 147/116 H 04/07/21 18:37 Pulse Ox 99 04/07/21 18:37 Orders, Labs, Meds: Laboratory Tests 04/07/21 04/07/21 04/07/21 Range/Units 19:05 19:05 19:05 WBC 4.22 L (4.23-9.07) K/mm3 RBC 4.19 L (4.63-6.08) M/mm3 Hgb 15.2 D (13.7-17.5) gm/dl Hct 43.1 (40.1-51.0) % MCV 102.9 H (79.0-92.2) fl MCH 36.3 H (25.7-32.2) pg MCHC 35.3 (32.2-35.5) g/dl RDW Std Deviation 52.2 H (35.1-43.9) fL Plt Count 256 (163-337) K/mm3 MPV 8.5 L (9.4-12.3) fl Neut % (Auto) 57.8 (34.0-67.9) % Lymph % (Auto) 24.6 (21.8-53.1) % Laurel % (Auto) 15.6 H (5.3-12.2) % Eos % (Auto) 0.9 (0.8-7.0) Baso % (Auto) 0.9 (0.1-1.2) % Neut # (Auto) 2.43 (1.78-5.38) K/mm3 Lymph # (Auto) 1.04 L (1.32-3.57) K/mm3 Laurel # (Auto) 0.66 (0.30-0.82) K/mm3 Eos # (Auto) 0.04 (0.04-0.54) K/mm3 Baso # (Auto) 0.04 (0.01-0.08) K/mm3 Sodium 144 (136-145) mEq/L Potassium 4.1 (3.5-5.1) mEq/L Chloride 106 (98-107) mEq/L Carbon Dioxide 26 (21-32) mEq/L Anion Gap 16.1 H (5-15) BUN 7 (7-18) mg/dL Creatinine 1.0 (0.7-1.3) mg/dL Est Cr Clr Drug Dosing 97.85 mL/min Estimated GFR (MDRD) > 60 (>60) mL/min BUN/Creatinine Ratio 7.0 L (14-18) Glucose 122 H (70-99) mg/dL Calcium 9.1 (8.5-10.1) mg/dL Magnesium 1.5 L (1.8-2.4) mg/dL Total Bilirubin 1.6 H (0.2-1.0) mg/dL AST 148 H (15-37) U/L ALT 140 H (16-63) U/L Alkaline Phosphatase 87 (46-116) U/L Total Protein 7.7 (6.4-8.2) g/dl Albumin 4.0 (3.4-5.0) g/dl Globulin 3.7 gm/dL Albumin/Globulin Ratio 1.1 (1-2) TSH 3rd Generation 2.259 (0.358-3.74) uIU/mL Salicylates < 0.2 L (2.8-20) mg/dL Urine Opiates Screen (QMPEZN=686) Ur Buprenorphine Scrn (CUTOFF=10) Ur Oxycodone Screen (OWP5VJ=794) Urine Methadone Screen (OPE4VO=834) Ur Propoxyphene Screen (PGXNFR=465) Acetaminophen 0 L (10-30) ug/mL Ur Barbiturates Screen (TCJONP=146) Ur Tricyclics Screen (SUPLCO=479) Ur Phencyclidine Scrn (CUTOFF=25) Ur Amphetamine Screen (HNZWRQ=354) U Methamphetamines Scrn (UHTODU=275) U Benzodiazepines Scrn (OKZWYR=606) U Cocaine Metab Screen (HKAYIW=536) U Marijuana (THC) Screen (CUTOFF=50) Ethyl Alcohol 0.03 (0.00) gm% SARS-CoV-2 RNA (JORGE) (NEGATIVE) 04/07/21 04/08/21 Range/Units 22:07 00:18 WBC (4.23-9.07) K/mm3 RBC (4.63-6.08) M/mm3 Hgb (13.7-17.5) gm/dl Hct (40.1-51.0) % MCV (79.0-92.2) fl MCH (25.7-32.2) pg MCHC (32.2-35.5) g/dl RDW Std Deviation (35.1-43.9) fL Plt Count (163-337) K/mm3 MPV (9.4-12.3) fl Neut % (Auto) (34.0-67.9) % Lymph % (Auto) (21.8-53.1) % Laurel % (Auto) (5.3-12.2) % Eos % (Auto) (0.8-7.0) Baso % (Auto) (0.1-1.2) % Neut # (Auto) (1.78-5.38) K/mm3 Lymph # (Auto) (1.32-3.57) K/mm3 Laurel # (Auto) (0.30-0.82) K/mm3 Eos # (Auto) (0.04-0.54) K/mm3 Baso # (Auto) (0.01-0.08) K/mm3 Sodium (136-145) mEq/L Potassium (3.5-5.1) mEq/L Chloride (98-107) mEq/L Carbon Dioxide (21-32) mEq/L Anion Gap (5-15) BUN (7-18) mg/dL Creatinine (0.7-1.3) mg/dL Est Cr Clr Drug Dosing mL/min Estimated GFR (MDRD) (>60) mL/min BUN/Creatinine Ratio (14-18) Glucose (70-99) mg/dL Calcium (8.5-10.1) mg/dL Magnesium (1.8-2.4) mg/dL Total Bilirubin (0.2-1.0) mg/dL AST (15-37) U/L ALT (16-63) U/L Alkaline Phosphatase (46-116) U/L Total Protein (6.4-8.2) g/dl Albumin (3.4-5.0) g/dl Globulin gm/dL Albumin/Globulin Ratio (1-2) TSH 3rd Generation (0.358-3.74) uIU/mL Salicylates (2.8-20) mg/dL Urine Opiates Screen Negative (YQGMRD=510) Ur Buprenorphine Scrn Negative (CUTOFF=10) Ur Oxycodone Screen Negative (UDK2GG=261) Urine Methadone Screen Negative (MOZ7QI=269) Ur Propoxyphene Screen Negative (RPMJXM=281) Acetaminophen (10-30) ug/mL Ur Barbiturates Screen Negative (KZZZNQ=880) Ur Tricyclics Screen Negative (ZSSFWV=727) Ur Phencyclidine Scrn Negative (CUTOFF=25) Ur Amphetamine Screen Negative (FHKKSM=597) U Methamphetamines Scrn Negative (KOAMKP=316) U Benzodiazepines Scrn Negative (KWXLFO=902) U Cocaine Metab Screen Negative (QTTYJN=514) U Marijuana (THC) Screen Negative (CUTOFF=50) Ethyl Alcohol (0.00) gm% SARS-CoV-2 RNA (JORGE) Negative (NEGATIVE) Medications Discontinued Medications Generic Name Dose Route Start Last Admin Trade Name Freq PRN Reason Stop Dose Admin Diphenhydramine HCl 50 mg 04/07/21 21:11 04/07/21 21:30 Diphenhydramine 50 Mg/Ml Sdv IVPUSH 04/07/21 21:12 50 mg ONETIME ONE Administration Sodium Chloride 1,000 mls @ 999 mls/hr 04/07/21 18:51 04/07/21 19:21 Normal Saline IV 04/07/21 19:51 999 mls/hr ONETIME ONE Administration Lorazepam 1 mg 04/07/21 21:11 04/07/21 21:31 Lorazepam 2 Mg/Ml Sdv IVPUSH 04/07/21 21:12 1 mg ONETIME ONE Administration Metoclopramide HCl 10 mg 04/07/21 21:11 04/07/21 21:27 Metoclopramide 10 Mg/2 Ml Sdv IVPUSH 04/07/21 21:12 10 mg ONETIME ONE Administration Sodium Chloride 10 ml 04/07/21 18:51 04/07/21 19:21 Sodium Chloride 0.9% 10 Ml Syringe FLUSH 10 ml ASDIRECTED PRN Administration Keep Vein Open Re-Assessment/Re-Exam: Hematology reveals a WBC of 4.22, hemoglobin 15.2, hematocrit 43.1, platelet count 256 Chemistry reveals a sodium of 144, potassium 4.1, anion gap 16.1, BUN 7, creatinine 1.0, glucose 122, magnesium 1.5, bilirubin 1.6, AST 148, ALT 140, TSH 2.259, Toxicology reveals a salicylate level less than 0.2, acetaminophen 0, ethyl alcohol 0.03 Went into reassess the patient and he is awake and alert in the room. He denies drinking over the past 48 hours however blood alcohol is 0.03. He is asking to leave. I asked him if he wants to seek alcohol treatment and he says he does not. I asked him if he wants to stop drinking and he said yes he does. Patient does seem tremulous and very anxious. I have ordered for him to receive Ativan 1 mg IV as well as Reglan 10 mg and Benadryl 50 mg. Patient is resting well after receiving the Ativan, Reglan and Benadryl. I did have a lengthy discussion with the patient's mother in regards to committal. She was told on his previous visit approximately a week ago that she would likely need to go to the states sales superintendent and file paperwork to have the patient committed. Patient's mother has not done this. Discussed with her the fact that I am not able to commit him as I do not have enough information to do so at this time. Patient is coherent and able to make his own decisions and he is not wanting to go to treatment. Patient's mother verbalizes understanding of this. She states she is going to go home and get some close for him to wear should he decide to leave the emergency department.
[2021-04-07 20:02] LABS: ACETAMINOPHEN 0 ug/mL (10-30)
[2021-04-07] MEDS ORDERED: Metoclopramide 10 MG/2 ML SDV IVPUSH ONE (21:11)
[2021-04-07] MEDS ORDERED: diphenhydrAMINE 50 MG/ML SDV IVPUSH ONE (21:11)
[2021-04-07] MEDS ORDERED: LORazepam 2 MG/ML SDV IVPUSH ONE (21:11)
== END 2021-04-08 01:29 | disposition home or self-care (01) ==
LOC: JD.ED 18:13
DX: F10.10 Alcohol abuse, uncomplicated (principal); Y90.0 Blood alcohol level of less than 20 mg/100 ml; Z20.822 Contact with and (suspected) exposure to COVID-19
CPT/HCPCS: 36415; 80053; 80143; 80179; 80306; 80307; 83735; 84443; 85025; 87635; 96374; 96375; 99284; J1200; J2060; J2765; J7030; U0002

== ENCOUNTER 2021-08-31 11:01 | Emergency (ER) | payer SELFPAY ==
[2021-08-31 11:07] VITALS: BP 150/80; PULSE 86
== END 2021-08-31 13:00 | disposition home or self-care (01) ==
LOC: JD.ED 11:01
DX: R20.2 Paresthesia of skin (principal); F10.229 Alcohol dependence with intoxication, unspecified
CPT/HCPCS: 99283; 99284

== ENCOUNTER 2024-04-04 12:43 | Emergency (ER) | payer SELFPAY ==
[2024-04-04 14:28] VITALS: BP 129/90; PULSE 73
== END 2024-04-04 14:25 | disposition home or self-care (01) ==
LOC: JD.ED 12:43
DX: M54.50 Low back pain, unspecified (principal); F17.210 Nicotine dependence, cigarettes, uncomplicated
CPT/HCPCS: 72128; 72128-26; 72131; 72131-26; 99283